=== PATIENT | female | born 1990 | race African-American/Black ===

== ENCOUNTER 2017-09-25 15:11 | Emergency (ER) | payer SELFPAY ==
[~2017-09-25] VITALS: Ht 160 cm; Wt 58.6 kg
[2017-09-25 17:20] LABS: COLLECTION METHOD CLEAN CATCH
[2017-09-25 17:22] LABS: BASO % 0.3 % (0.0-2.0); EOS # 0.3 (0.0-0.7); EOS % 1.8 % (0-4.0); GRAN # 9.9 (1.4-6.5); GRAN % 70.9 % (42.2-75.2); HEMATOCRIT 37.4 % (37.0-47.0); LYMPH # 2.6 (1.2-3.4); LYMPH % 18.9 % (20.0-51.0); MEAN CELL VOLUME 91 fl (80.0-100.0); MEAN CORPUSCULAR HEMOGLOBIN 29 pg (27.0-31.0); MEAN CORPUSCULAR HGB CONC 32 g/dl (33.0-37.0); MEAN PLATELET VOLUME 9.4 fl (7.4-10.4); MONO # 1.1 (0.1-0.6); MONO % 7.7 % (1.7-9.3); PLATELET COUNT 212 K/mm3 (130-400); RED BLOOD COUNT 4.09 M/mm3 (4.10-5.30); WHITE BLOOD COUNT 13.9 K/mm3 (4.8-10.8)
[2017-09-25 17:23] LABS: HEMOGLOBIN 11.9 g/dl (12.5-16.0)
[2017-09-25 17:25] LABS: MUCOUS Present /lpf; PH 6 (5-8); SQUAMOUS EPITHELIAL 0-2 /hpf; URINE APPEARANCE Clear; URINE BACTERIA None Seen /hpf; URINE BILIRUBIN Negative (NEGATIVE); URINE BLOOD Negative (NEGATIVE); URINE COLOR Yellow; URINE GLUCOSE Negative (NEGATIVE); URINE KETONE Negative (NEGATIVE); URINE LEUKOCYTE ESTERASE Negative (NEGATIVE); URINE PROTEIN(semi-quant) Negative (NEGATIVE); URINE RBC 0-2 /hpf; URINE UROBILINOGEN >=4.0 mg/dL (NEGATIVE); URINE WBC 0-2 /hpf
[2017-09-25 17:36] LABS: ALBUMIN 3.5 gm/dL (3.5-5.0); BILIRUBIN,TOTAL 1.1 mg/dL (0.0-1.0); C-REACTIVE PROTEIN 3.7 mg/dL (0.0-0.9); CALCIUM 8.6 mg/dL (8.4-10.2); CREATININE, serum 0.64 mg/dL (0.52-1.25); POTASSIUM 3.5 mmol/L (3.4-5.0); TOTAL PROTEIN 6.3 gm/dL (6.4-8.2)
[2017-09-25 20:44] LABS: CHLAMYDIA/TRACH by PCR Female NOT DETECTED; NEISSERIA GON by PCR Female NOT DETECTED
[2017-09-25] MEDS ORDERED: NORCO 325 MG-51 TAB PO (21:48)
[2017-09-25] MEDS ORDERED: DOXYCYCLINE 10100 MG PO (21:48)
[2017-09-25 22:32] VITALS: BP 112/59; PULSE 82; TEMP 98.2
== END 2017-09-25 23:09 | disposition home or self-care (01) ==
LOC: COL.ER 15:11
PROVIDERS: Nurse Practitioner; Nurse Practitioner Primary Care
DX: R10.2 Pelvic and perineal pain (principal); F17.210 Nicotine dependence, cigarettes, uncomplicated
CPT/HCPCS: J0696; J1170; J2405; J7030; J7050; Q9967